=== PATIENT | female | born 1965 | race Caucasian/White ===

== ENCOUNTER 2017-07-08 07:32 | Observation (INO) | payer OTHER ==
[~2017-07-08] VITALS: Ht 160 cm; Wt 61.0 kg
[~2017-07-08 07:32] MED LIST: ASPI81TA23 PO; DAILTAB8 PO
[2017-07-08] MEDS ORDERED: POVIDONE IODINE 5% (ANTISEPSIS KIT) 4 APPLICATIONS EACH NARE PRN (07:45)
[2017-07-08] MEDS ORDERED: INSULIN HUMAN REGULAR 1,000 UNITS/10 ML VIAL SQ PRN (07:45)
[2017-07-08] MEDS ORDERED: METOPROLOL TARTRATE 25 MG TAB PO PRN (07:45)
[2017-07-08] MEDS ORDERED: LACTATED RINGER'S 1000 ML IV PRN (07:45)
[2017-07-08] MEDS ORDERED: CHLORHEXIDINE GLUCONATE 2 % 1 PACK (2 CLOTHS) TOPICAL PRN (07:45)
[2017-07-08] MEDS ORDERED: SODIUM CHLORID 0.9% 500 ML IV PRN (07:45)
[2017-07-08] MEDS ORDERED: APREPITANT 40 MG CAP ONE (07:58)
[2017-07-08] MEDS ORDERED: BIOTCAP PO (08:06)
[2017-07-08] MEDS ORDERED: CYAN1TAB24 PO (08:06)
[2017-07-08] MEDS ORDERED: FERR325T18 PO (08:06)
[2017-07-08] MEDS ORDERED: VITA1000 PO (08:06)
[2017-07-08] MEDS ORDERED: APREPITANT 40 MG CAP PO ONE (08:15)
[2017-07-08 08:19] LABS: AUTOMATED NEUTROPHIL # 2.2 TH/MM3 (1.8-7.7); BASOPHIL # 0.1 TH/MM3 (0-0.2); BASOPHIL % 1.4 % (0.0-2.0); EOSINOPHIL # 0.1 TH/MM3 (0-0.4); HEMATOCRIT 41.5 % (35.0-46.0); HEMOGLOBIN 14.1 GM/DL (11.6-15.3); LYMPH % 28.2 % (9.0-44.0); MEAN CELL VOLUME 92.5 FL (80.0-100.0); MEAN CORPUSCULAR HEMOGLOBIN 31.4 PG (27.0-34.0); MEAN CORPUSCULAR HGB CONC 33.9 % (32.0-36.0); MEAN PLATELET VOLUME 7.9 FL (7.0-11.0); MONO % 9.8 % (0.0-8.0); MONOCYTE # 0.4 TH/MM3 (0-0.9); NEUT % 58.6 % (16.0-70.0); PLATELET COUNT 190 TH/MM3 (150-450); RED BLOOD COUNT 4.49 MIL/MM3 (4.00-5.30); WHITE BLOOD COUNT 3.7 TH/MM3 (4.0-11.0)
[2017-07-08] MEDS ORDERED: ACETAMINOPHEN 1000 MG/100 ML 100 ML IV ONE (08:23)
[2017-07-08] MEDS ORDERED: fentaNYL CITRATE 250 MCG/5 ML AMP ONE (09:29)
[2017-07-08] MEDS ORDERED: MIDAZOLAM HCL 2 MG/2 ML VIAL ONE (09:30)
[2017-07-08] MEDS ORDERED: LIDOCAINE 1%/EPINEPHrine 1:100,000 SOLN 30 ML VIAL ONE (10:01)
[2017-07-08] MEDS ORDERED: LIDOCAINE HCL 1% PF 5 ML SYRINGE OTHER ONE (12:00)
[2017-07-08] MEDS ORDERED: PROPOFOL 200 MG/20 ML AMP IV ONE (12:00)
[2017-07-08] MEDS ORDERED: KETOROLAC TROMETHAMINE 30 MG/ML (IVP) VIAL IV PUSH ONE (12:00)
[2017-07-08] MEDS ORDERED: ONDANSETRON HCL 4 MG/2 ML VIAL IV ONE (12:00)
[2017-07-08] MEDS ORDERED: LACTATED RINGER'S 1000 ML INJ 1,000 ML IV ONE (12:00)
[2017-07-08] MEDS ORDERED: GLYCOPYRROLATE 1 MG/5 ML SYRINGE IV PUSH ONE (12:00)
[2017-07-08] MEDS ORDERED: ceFAZolin INJ 1,000 MG VIAL IV ONE (12:00)
[2017-07-08] MEDS ORDERED: DEXAMETHASONE SOD PHOS 4 MG/ML VIAL IV ONE (12:00)
[2017-07-08] MEDS ORDERED: ROCURONIUM INJ 50 MG/5 ML SYRINGE IV PUSH ONE (12:00)
[2017-07-08] MEDS ORDERED: NEOSTIGMINE 5 MG/5 ML SYRINGE IV PUSH ONE (12:00)
[2017-07-08] MEDS ORDERED: *morphine SULFATE 8 MG/ML PERIprocedure ONLY ONE (12:16)
[2017-07-08] MEDS ORDERED: *morphine SULFATE 4 MG/ML PERIprocedure ONLY ONE (12:33)
[2017-07-08] MEDS ORDERED: LACTATED RINGER'S 1000 ML INJ 1,000 ML IV SCH (12:37)
--- NOTE | 2017-07-08 12:37 | PD.OP ---
Operative Report Date of Surgery: Jul 08, 2017 Preoperative Diagnosis: (1) Dysfunctional uterine bleeding (2) Intramural leiomyoma of uterus Postoperative Diagnosis: (1) Intramural leiomyoma of uterus (2) Dysfunctional uterine bleeding Procedure: LAVH BSO Anesthesia: general LEV Surgeon: Iftikhar Phan Production Finisher(s): Iftikhar Ramirez MD Jul 08, 2017 12:37
[2017-07-08] MEDS ORDERED: DO NOT ADM ANY ANTICOAGULANT DRUGS PRN (12:45)
[2017-07-08] MEDS ORDERED: HYDROmorphone HCL PF 1 MG/ML VIAL IVP PRN (12:45)
[2017-07-08] MEDS ORDERED: ONDANSETRON HCL 4 MG/2 ML VIAL IVP PRN (12:45)
[2017-07-08] MEDS ORDERED: oxyCODONE/ACETAMINOPHEN 5 MG/325 MG TAB PO PRN (12:45)
[2017-07-08] MEDS ORDERED: diphenhydrAMINE HCL 25 MG CAP PO PRN (12:45)
[2017-07-08] MEDS ORDERED: SODIUM CHLORIDE 0.9% FLUSH 10 ML FLUSH IV FLUSH PRN (12:45)
[2017-07-08 13:00] VITALS: BP 122/74; PULSE 69; RESP 17; TEMP 98.3; O2SAT 100
[2017-07-08] MEDS ORDERED: KETOROLAC TROMETHAMINE 30 MG/ML (IVP) VIAL IVP PRN (13:00)
--- NOTE | 2017-07-08 13:04 | MP ---
cc: Iftikhar Phan MD DATE OF OPERATION: 07/08/2017 PROCEDURE PERFORMED: Laparoscopic-assisted vaginal hysterectomy, bilateral salpingo-oophorectomy, skin tag removal of left labia. PREOPERATIVE DIAGNOSIS: Dysfunctional uterine bleeding along with fibroids and postcoital bleeding. POSTOPERATIVE DIAGNOSIS: Dysfunctional uterine bleeding along with fibroids and postcoital bleeding. SURGEON: Iftikhar Phan MD INVASIVE CARDIOVASCULAR TECHNOLOGIST: DINESH Maldonado COMPLICATIONS: None. FINDINGS: Enlarged fibroid uterus, normal ovaries and fallopians, bilateral. Small left ovarian cyst, benign. Patient had skin tag on her left labia, which was removed. Pathology included uterus, cervix, fallopian tubes, and ovaries bilaterally. ANESTHESIA: general [place]. PROCEDURE IN DETAIL: After informed consent, patient taken to the operating room where she was placed under general anesthesia, placed in a supine position, [facility] the [facility] stirrups. Perineum and vagina prepped and draped in normal sterile fashion. After adequate anesthesia was assured and a timeout was taken, a speculum was placed in the vagina. Cervix was grasped with a single-tooth tenaculum. A uterine manipulator was placed in the cervix without difficulty. Gloves were changed. A supraumbilical incision was then made and entered into the abdomen under direct visualization with a 5 mm trocar. Left lower quadrant and right lower quadrant trocars were placed without difficulty. The abdomen was insufflated. Upper and lower abdomen were normal. There was a left ovarian cyst, which was small and benign appearing. The ovarian arteries were taken with the Harmonic scalpel. We came across those and then down to level of the round ligament, came across the round ligament, down the broad ligament to create a bladder flap. We created bladder flap. I dissected the bladder off the cervix without difficulty. Then, uterine arteries were cut and cauterized with Harmonic scalpel until we reached the level of the cervical branch of the uterine artery. At this point, our attention was turned to the vaginal portion of the case. Legs were brought back. The speculum was placed back in the vagina. Using injection with 1% lidocaine with epinephrine, we injected anteriorly, incised the vaginal mucosa on the cervix down to the level of the cervical fascia. We then dissected up to our incision from above creating our bladder flap and entering the peritoneal cavity without difficulty. Urine remained clear throughout this portion of the case. Posterior cul-de-sac was entered with Park scissors. Using a Bj clamp, we clamped, cut, and tied the uterosacral and cardinal ligaments approximating anterior and posterior peritoneum. Cervical branches were taken with Bj clamp and 0 Vicryl suture. We continued up, then we reached our incision from above. At this point, the incision from above was met. The uterus was amputated and removed. Both ovaries and fallopian tubes were removed intact along with uterus and cervix. Fibroids were noted. The posterior vaginal cuff was then run with a running locking stitch of Vicryl suture. Oozing was under much better control. At this point, [id number] sutures were used to close the vaginal cuff without difficulty. There was a small skin tag and a portion of torn hymen, which was removed vaginally without difficulty with suture. At this point, this portion of the procedure was ended. We changed gloves. The abdomen was reinsufflated. The 5 mm trocars still remained in place. We insufflated the abdomen, visualized all pedicles and the vaginal cuff. Everything was hemostatic at the end of the procedure. All instruments were removed from the abdomen. The patient was awakened after the 5 mm ports were closed with simple stitch of 4-0 Monocryl. The patient was taken to recovery room in stable condition. Lap and instrument counts reported as correct. Family was notified. MD OPAL Dowd/KASSIE , 12:35 PM , 01:03 PM
--- NOTE | 2017-07-08 14:37 | EKG ---
Date Performed: 07/08/2017 Time Performed: 08:15:27 PTAGE: 52 years EKG: Sinus rhythm NORMAL ECG NO PREVIOUS TRACING DOCTOR: James Perrin Interpretating Date/Time 07/08/2017 14:34:02
[2017-07-08 17:50] VITALS: BP 119/70; PULSE 89; RESP 17; TEMP 98.1; O2SAT 99
[2017-07-08] MEDS: oxyCODONE/ACETAMINOPHEN 5 MG/325 MG TAB PO PRN (18:16)
[2017-07-08] MEDS: DOCUSATE SODIUM 50 MG/SENNA 8.6 MG TAB PO SCH (19:48)
[2017-07-08 20:00] VITALS: BP 107/72; PULSE 78; RESP 16; TEMP 98; O2SAT 96
[2017-07-08] MEDS ORDERED: SODIUM CHLORIDE 0.9% FLUSH 10 ML FLUSH IV FLUSH SCH (21:00)
[2017-07-09] VITALS: BP 98/66; PULSE 78; RESP 16; TEMP 98.3; O2SAT 99
[2017-07-09 04:00] VITALS: BP 128/84; PULSE 69; RESP 16; TEMP 98.3; O2SAT 97
[2017-07-09] MEDS: oxyCODONE/ACETAMINOPHEN 5 MG/325 MG TAB PO PRN (04:16)
[2017-07-09 05:55] LABS: BASOPHIL % 0.3 % (0.0-2.0); EOSINOPHIL % 0.1 % (0.0-4.0); HEMATOCRIT 32.9 % (35.0-46.0); HEMOGLOBIN 10.9 GM/DL (11.6-15.3); LYMPHOCYTE # 0.7 TH/MM3 (1.0-4.8); MEAN CELL VOLUME 93.6 FL (80.0-100.0); MEAN CORPUSCULAR HEMOGLOBIN 31.1 PG (27.0-34.0); MEAN CORPUSCULAR HGB CONC 33.2 % (32.0-36.0); MEAN PLATELET VOLUME 7.6 FL (7.0-11.0); MONO % 8.8 % (0.0-8.0); MONOCYTE # 0.4 TH/MM3 (0-0.9); NEUT % 77.8 % (16.0-70.0); PLATELET COUNT 147 TH/MM3 (150-450); RED BLOOD COUNT 3.51 MIL/MM3 (4.00-5.30); RED CELL DISTRIBUTION WIDTH 13.7 % (11.6-17.2); WHITE BLOOD COUNT 5.1 TH/MM3 (4.0-11.0)
[2017-07-09 08:00] VITALS: BP 102/68; PULSE 75; RESP 18; TEMP 98.1; O2SAT 100
--- NOTE | 2017-07-09 08:05 | HHI.OB ---
Subjective Post Operative Day: 1 Remarks doing well Objective Vitals/I&O Vital Signs Date Time Temp Pulse Resp B/P (MAP) Pulse Ox O2 Delivery O2 Flow Rate FiO2 07/09/17 04:00 98.3 69 16 128/84 (99) 97 07/09/17 00:00 98.3 78 16 98/66 (77) 99 07/08/17 20:00 98.0 78 16 107/72 (84) 96 07/08/17 17:50 98.1 89 17 119/70 (86) 99 07/08/17 13:00 98.3 69 17 122/74 (90) 100 07/08/17 12:45 78 17 111/74 (86) 100 Room Air 07/08/17 12:30 74 18 106/67 (80) 100 Room Air 07/08/17 12:14 98.5 87 12 118/69 (85) 100 Room Air Intake & Output 07/09/17 07/09/17 07:00 19:00 Output Total 650 ml Balance -650 ml Output Urine Total 650 ml # Voids 3 Result Diagram: 07/09/17 0508 Objective Remarks GENERAL: Well-nourished, well-developed patient. . ABDOMEN/GI: Abdomen soft, non-tender, bowel sounds present. Incision: Clean, dry and intact. Fundus: Firm, non-tender at umbilicus. GENITOURINARY: Light to moderate bleeding. EXTREMITIES: No cyanosis or edema, non-tender, without signs of DVT. Medications and IVs Current Medications Medications (Trade) Dose Ordered Sig/Augie Route Start Time Stop Time Status Last Admin (Lopressor) 25 mg MOUNTER SOUSAPHONES PRN PO 07/08/17 07:45 07/11/17 07:44 (Betadine 5% Antisepsis Kit) 1 applic MOUNTER SOUSAPHONES PRN EACH NARE 07/08/17 07:45 07/11/17 07:44 07/08/17 08:08 (Chlorhexidine 2% Cloth) 3 pack MOUNTER SOUSAPHONES PRN TOPICAL 07/08/17 07:45 07/11/17 07:44 07/08/17 08:08 (NovoLIN R INJ) See Protocol Table ... MOUNTER SOUSAPHONES PRN SQ 07/08/17 07:45 07/11/17 07:44 Cefazolin Sodium 2000 mg/Sodium Chloride 100 ml @ 200 mls/hr MOUNTER SOUSAPHONES IV 07/08/17 07:45 07/11/17 07:44 Miscellaneous Information ALL NURSING DEPARTME... UNSCH PRN .XX 07/08/17 12:45 07/09/17 12:44 (NS Flush) 2 ml UNSCH PRN IV FLUSH 07/08/17 12:45 (NS Flush) 2 ml BID IV FLUSH 07/08/17 21:00 (Toradol Inj) 30 mg Q6H PRN IVP 07/08/17 13:00 07/13/17 12:59 (Percocet 5-325 Mg) 1 tab Q4H PRN PO 07/08/17 12:45 07/09/17 04:16 (Percocet 5-325 Mg) 2 tab Q4H PRN PO 07/08/17 12:45 (Dilaudid Pf Inj) 1 mg Q4H PRN IVP 07/08/17 12:45 (Benadryl) 25 mg Q6H PRN PO 07/08/17 12:45 (Zofran Inj) 4 mg Q6H PRN IVP 07/08/17 12:45 (Sara-Colace) 1 tab DAILY PO 07/08/17 18:45 07/08/17 19:48 Assessment/Plan Problem List: (1) Intramural leiomyoma of uterus ICD Codes: D25.1 - Intramural leiomyoma of uterus Iftikhar Phan MD Jul 09, 2017 08:05
[2017-07-09] MEDS ORDERED: OXYC1TAB63 PO (08:06)
--- NOTE | 2017-07-09 08:06 | HHI.DCPOC ---
Discharge Care Plan Diagnosis: (1) Intramural leiomyoma of uterus Report Symptoms to Your Doctor -Temperature above 100.5 degrees -Redness, of incision or excessive or foul smelling drainage -Unusual pain or calf pain -Increased vaginal bleeding -Painful or difficulty urinating -Feelings of extreme sadness or anxiety after 2 weeks Goals to Promote Your Health * To prevent worsening of your condition and complications * To maintain your health at the optimal level Directions to Meet Your Goals Take your medications as prescribed Follow your dietary instruction Follow activity as directed Ensure plenty of rest for recovery Drink fluids for hydration Keep your appointments as scheduled Take your immunizations and boosters as scheduled If your symptoms worsen call your PCP, if no PCP go to Urgent Care Center or Emergency Room Smoking is Dangerous to Your Health. Avoid second hand smoke Call the 24-hour crisis hotline for domestic abuse at Iftikhar Phan MD Jul 09, 2017 08:06
--- NOTE | 2017-07-09 08:21 | HHI.DS ---
Admission Date Jul 08, 2017 at 12:39 Discharge Date: Jul 09, 2017 Admitting Diagnosis Diagnosis: (1) Intramural leiomyoma of uterus Diagnosis: Principal ICD Codes: D25.1 - Intramural leiomyoma of uterus Brief History 52 yo has fibroids and she is aware of surgery Hospital Course doing well S/P [facility] home Pt Condition on Discharge: Good Discharge Disposition: Discharge Home Discharge Instructions Diet Instructions: As Tolerated, No Restrictions Activities You Can Perform: Regular-No Restrictions, Pelvic Rest Follow up Referrals: HARDENER HELPER - 2 Weeks @ [facility] with Iftikhar Phan MD New Medications: Oxycodone HCl/Acetaminophen (Oxycodone-Acetaminophen 5-325) 5 Mg-325 Mg Tablet 1 TAB PO Q4H PRN for PAIN SCALE 3 TO 5, #30 TAB Continued Medications: Aspirin DR (Aspirin EC) 81 Mg Tabdr 81 MG PO DAILY, TAB 0 Refills Biotin (Biotin) 5 Mg Cap 500 MG PO DAILY for Nutritional Supplement, #1 BOTTLE 0 Refills Cholecalciferol (Vitamin D-1000) 1,000 Unit Tab 2000 UNITS PO DAILY for Nutritional Supplement, #1 BOTTLE 0 Refills Cyanocobalamin (B12) 1,000 Mcg Tab 1 TAB PO DAILY Ferrous Sulfate (Ferrous Sulfate) 325 Mg (65 Mg Iron) Tablet 325 MG PO DAILY for Nutritional Supplement, #30 TAB 0 Refills Iftikhar Phan MD Jul 09, 2017 08:21
[2017-07-09] MEDS: DOCUSATE SODIUM 50 MG/SENNA 8.6 MG TAB PO SCH (09:00)
[2017-07-09] MEDS ORDERED: DOCUSATE SODIUM 50 MG/SENNA 8.6 MG TAB PO ONE (11:15)
[2017-07-09] MEDS ORDERED: IBUPROFEN 600 MG TAB PO ONE (11:15)
== END 2017-07-09 12:16 | disposition home or self-care (01) ==
LOC: HSDC 07:32 → HSDI 12:39 → H1EA 13:10
PROVIDERS: ADMIT Obstetrics & Gynecology; ATTEND Obstetrics & Gynecology
DX: N93.8 Other specified abnormal uterine and vaginal bleeding (principal); D25.1 Intramural leiomyoma of uterus; N93.0 Postcoital and contact bleeding; N83.201 Unspecified ovarian cyst, right side; N83.202 Unspecified ovarian cyst, left side; N88.8 Other specified noninflammatory disorders of cervix uteri; N83.8 Other noninflammatory disorders of ovary, fallopian tube and broad ligament; Z01.810 Encounter for preprocedural cardiovascular examination
CPT/HCPCS: 00840; 11200; 58554; 84703; 85025; 86850; 86900; 86901; 88304; 88307; 93005; J0131; J2250; J2270; J3010; J7120; G0378; J0690; J1100; J1885; J2405; J2710; J8501